=== PATIENT | male | born 1955 | race Caucasian/White ===

== ENCOUNTER 2020-09-01 18:14 | Outpatient (REF) | payer OTHER, SELFPAY ==
[2020-09-01 21:04] LABS: FREE T4 1.02 ng/dL (0.76-1.46); TSH 0.87 uIU/mL (0.36-3.74)
[2020-09-03 10:09] LABS: HIV-1/2 Ag & Ab Screen Negative (Negative)
[2020-09-03 10:31] LABS: Hepatitis C Ab w Rflx HCV PCR Negative (Negative)
== END 2020-09-01 18:15 | disposition home or self-care (01) ==
LOC: NCHCN 18:14
PROVIDERS: Visit Provider Nurse Practitioner Family
DX: Z11.4 Encounter for screening for human immunodeficiency virus [HIV]; Z11.59 Encounter for screening for other viral diseases; E05.90 Thyrotoxicosis, unspecified without thyrotoxic crisis or storm
CPT/HCPCS: 86803; 87389; 84439; 84443

== ENCOUNTER 2020-12-24 12:43 | Outpatient (REF) | payer OTHER, SELFPAY ==
[2020-12-24 17:31] LABS: ALT 90 U/L (16-63); AST 42 U/L (15-37); Alkaline Phosphatase 58 U/L (46-116); Anion Gap 8.2 mmol/L (3-11); BUN 18 mg/dL (7-18); Bilirubin, Total 0.7 mg/dL (0.2-1.0); CO2 26.8 mmol/L (21.0-32.0); CREATININE 0.9 mg/dL (0.70-1.30); Calcium 9.3 mg/dL (8.5-10.1); Chloride 104 mmol/L (98-107); Glucose 101 mg/dL (74-106); Potassium 4.7 mmol/L (3.5-5.1); Sodium 139 mmol/L (136-145); Total Protein 6.8 g/dL (6.4-8.2)
== END 2020-12-24 12:44 | disposition home or self-care (01) ==
LOC: NCHCN 12:43
PROVIDERS: Visit Provider Nurse Practitioner Family
DX: I10 Essential (primary) hypertension (principal)
CPT/HCPCS: 80053

== ENCOUNTER 2021-03-22 09:04 | Outpatient (REF) | payer OTHER, SELFPAY | END 2021-03-22 09:05 | disposition home or self-care (01) | LOC: NCHCN 09:04 | PROVIDERS: Visit Provider Nurse Practitioner Family | DX: N45.1 Epididymitis (principal) | CPT/HCPCS: 87086 ==

== ENCOUNTER 2021-04-19 17:39 | Outpatient (REF) | payer OTHER, SELFPAY ==
[2021-04-19 16:26] LABS: ALT 78 U/L (16-63); AST 36 U/L (15-37); Albumin 4.4 g/dL (3.4-5.0); Alkaline Phosphatase 61 U/L (46-116); Anion Gap 10.3 mmol/L (3-11); BUN 16 mg/dL (7-18); Bilirubin, Total 0.5 mg/dL (0.2-1.0); CO2 27.7 mmol/L (21.0-32.0); Calcium 9.6 mg/dL (8.5-10.1); Chloride 104 mmol/L (98-107); Glucose 108 mg/dL (74-106); Potassium 4.2 mmol/L (3.5-5.1); Sodium 142 mmol/L (136-145); Total Protein 7.4 g/dL (6.4-8.2)
[2021-04-19 16:39] LABS: TSH 1.29 uIU/mL (0.36-3.74)
[2021-04-20 10:08] LABS: Hep B Core Antibody Negative (Negative)
[2021-04-20 10:44] LABS: Hep A Total Ab w Rflx IgM Positive (Negative)
[2021-04-20 11:55] LABS: Hep A Antibody IgM Negative (Negative)
== END 2021-04-19 17:40 | disposition home or self-care (01) ==
LOC: NCHCN 17:39
PROVIDERS: Visit Provider Nurse Practitioner Family
DX: E05.90 Thyrotoxicosis, unspecified without thyrotoxic crisis or storm (principal); I10 Essential (primary) hypertension; Z11.59 Encounter for screening for other viral diseases
CPT/HCPCS: 80053; 86704; 86709; 84443

== ENCOUNTER 2021-10-21 11:08 | Outpatient (REF) | payer OTHER, SELFPAY ==
[2021-10-21 14:49] LABS: ALT 52 U/L (16-63); AST 36 U/L (15-37); Albumin 4.1 g/dL (3.4-5.0); Alkaline Phosphatase 45 U/L (46-116); Anion Gap 9.6 mmol/L (3-11); BUN 26 mg/dL (7-18); Bilirubin, Total 0.5 mg/dL (0.2-1.0); CO2 24.4 mmol/L (21.0-32.0); Calcium 9.4 mg/dL (8.5-10.1); Chloride 102 mmol/L (98-107); Glucose 104 mg/dL (74-106); Potassium 4.2 mmol/L (3.5-5.1); Sodium 136 mmol/L (136-145); TSH (W/Ref FT4) 0.76 uIU/mL (0.36-3.74)
[2021-10-21 15:01] LABS: Calculated LDL 49 mg/dL (<100); Cholesterol 159 mg/dL (<200); HDL Cholesterol 101 mg/dL (40-60); Triglyceride 45 mg/dL (<150)
== END 2021-10-21 11:09 | disposition home or self-care (01) ==
LOC: NCHCN 11:08
PROVIDERS: Visit Provider Nurse Practitioner Family
DX: E05.90 Thyrotoxicosis, unspecified without thyrotoxic crisis or storm (principal); R03.0 Elevated blood-pressure reading, without diagnosis of hypertension; R74.01 Elevation of levels of liver transaminase levels; I25.10 Atherosclerotic heart disease of native coronary artery without angina pectoris; Z86.39 Personal history of other endocrine, nutritional and metabolic disease
CPT/HCPCS: 80053; 80061; 84443

== ENCOUNTER 2022-11-14 10:17 | Outpatient (REF) | payer MEDICARE, SELFPAY ==
[2022-11-14 15:31] LABS: Abs Immature Grans 0.02 10^3/uL (0.0-0.06); Absolute Basophil Count 0.04 10^3/uL (0.0-0.2); Absolute Lymphocyte Count 1.28 10^3/uL (1.2-3.4); Absolute Monocyte Count 0.47 10^3/uL (0.1-0.8); Absolute Neutrophil Count 3.86 10^3/uL (1.2-6.7); Basophils % 0.7; Eosinophils % 1.7; HCT 37.4 % (40.0-50.0); HGB 12.6 g/dL (13.5-17.5); Immature Grans % 0.3; Lymphocytes % 22.2; MCHC 33.7 % (32.0-36.0); MCV 95 fL (80-95); MPV 10.4 fL (8.0-11.0); Monocytes % 8.1; Platelet Count 276 10^3/uL (130-400); RBC 3.94 10^6/uL (4.36-5.78); RDW 11.9 % (11.8-14.1); RDW-SD 40.9 fL; WBC 5.77 10^3/uL (4.4-10.8)
[2022-11-14 15:59] LABS: ALT 87 U/L (16-63); AST 76 U/L (15-37); Albumin 3.9 g/dL (3.4-5.0); Alkaline Phosphatase 61 U/L (46-116); Anion Gap 8.4 mmol/L (3-11); BUN 18 mg/dL (7-18); Bilirubin, Total 0.5 mg/dL (0.2-1.0); CO2 26.6 mmol/L (21.0-32.0); Calcium 9.2 mg/dL (8.5-10.1); Calculated LDL 41 mg/dL (<100); Chloride 105 mmol/L (98-107); Cholesterol 144 mg/dL (<200); Estimated GFR 83.52 (mL/min/1.73m2); Glucose 103 mg/dL (74-106); HDL Cholesterol 79 mg/dL (40-60); Potassium 4.4 mmol/L (3.5-5.1); Sodium 140 mmol/L (136-145); TSH (W/Ref FT4) 0.75 uIU/mL (0.36-3.74); Total Protein 6.9 g/dL (6.4-8.2); Triglyceride 122 mg/dL (<150)
[2022-11-15 09:20] LABS: PSA, Screening 0.3 ng/mL (<=4.5)
== END 2022-11-14 10:18 | disposition home or self-care (01) ==
LOC: NCHCN 10:17
PROVIDERS: PCP Nurse Practitioner Family; Visit Provider Nurse Practitioner Family
DX: E05.90 Thyrotoxicosis, unspecified without thyrotoxic crisis or storm (principal); R74.01 Elevation of levels of liver transaminase levels; R11.0 Nausea; I25.10 Atherosclerotic heart disease of native coronary artery without angina pectoris; Z12.5 Encounter for screening for malignant neoplasm of prostate
CPT/HCPCS: 80053; 80061; 84153; 84443; 85025

== ENCOUNTER 2023-02-09 10:05 | Outpatient (REF) | payer MEDICARE, SELFPAY ==
[2023-02-09 14:40] LABS: HCT 41.6 % (40.0-50.0); HGB 13.9 g/dL (13.5-17.5); MCHC 33.4 % (32.0-36.0); MCV 93 fL (80-95); MPV 10.6 fL (8.0-11.0); Platelet Count 304 10^3/uL (130-400); RBC 4.49 10^6/uL (4.36-5.78); RDW 11.9 % (11.8-14.1); WBC 5.74 10^3/uL (4.4-10.8)
[2023-02-09 15:16] LABS: ALT 39 U/L (16-63); AST 26 U/L (15-37); Alkaline Phosphatase 46 U/L (46-116); Anion Gap 8.5 mmol/L (3-11); BUN 21 mg/dL (7-18); Bilirubin, Total 0.5 mg/dL (0.2-1.0); CO2 24.5 mmol/L (21.0-32.0); Calcium 9.6 mg/dL (8.5-10.1); Chloride 106 mmol/L (98-107); Estimated GFR 83.52 (mL/min/1.73m2); Ferritin 16 ng/mL (26-388); Glucose 99 mg/dL (74-106); Magnesium 2.1 mg/dL (1.8-2.4); Potassium 4.3 mmol/L (3.5-5.1); Sodium 139 mmol/L (136-145); Total Protein 7.1 g/dL (6.4-8.2)
== END 2023-02-09 10:06 | disposition home or self-care (01) ==
LOC: NCHCN 10:05
PROVIDERS: PCP Nurse Practitioner Family; Visit Provider Nurse Practitioner Family
DX: D64.9 Anemia, unspecified (principal); K21.9 Gastro-esophageal reflux disease without esophagitis
CPT/HCPCS: 80053; 85027; 82728; 83735

== ENCOUNTER 2023-09-04 11:44 | Outpatient (REF) | payer MEDICARE, SELFPAY ==
[2023-09-04 14:49] LABS: HCT 42.8 % (40.0-50.0); HGB 14.2 g/dL (13.5-17.5); MCH 30.5 pg (27.0-33.0); MCHC 33.2 % (32.0-36.0); MCV 92 fL (80-95); MPV 10.3 fL (8.0-11.0); Platelet Count 309 10^3/uL (130-400); RBC 4.66 10^6/uL (4.36-5.78); RDW 13.2 % (11.8-14.1); RDW-SD 44.9 fL; WBC 6.44 10^3/uL (4.4-10.8)
[2023-09-04 14:59] LABS: ALT 36 U/L (16-63); AST 22 U/L (15-37); Albumin 4.3 g/dL (3.4-5.0); Alkaline Phosphatase 56 U/L (46-116); Anion Gap 7.6 mmol/L (3-11); BUN 19 mg/dL (7-18); Bilirubin, Total 0.6 mg/dL (0.2-1.0); CO2 27.4 mmol/L (21.0-32.0); CREATININE 1.1 mg/dL (0.70-1.30); Calcium 9.3 mg/dL (8.5-10.1); Chloride 103 mmol/L (98-107); Estimated GFR 74.04 (mL/min/1.73m2); FREE T4 0.94 ng/dL (0.76-1.46); Glucose 100 mg/dL (74-106); Potassium 4.7 mmol/L (3.5-5.1); Sodium 138 mmol/L (136-145); TSH 0.68 uIU/Ml (0.36-3.74); Total Protein 7.3 g/dL (6.4-8.2)
== END 2023-09-04 11:45 | disposition home or self-care (01) ==
LOC: NCHCN 11:44
PROVIDERS: PCP Nurse Practitioner Family; Visit Provider Nurse Practitioner Family
DX: Z86.39 Personal history of other endocrine, nutritional and metabolic disease (principal); I25.10 Atherosclerotic heart disease of native coronary artery without angina pectoris
CPT/HCPCS: 80053; 85027; 84439; 84443

== ENCOUNTER 2023-11-30 13:04 | Outpatient (REF) | payer MEDICARE, SELFPAY ==
[2023-11-30 18:06] LABS: Calculated LDL 54 mg/dL (<100); Cholesterol 169 mg/dL (<200); HDL Cholesterol 97 mg/dL (40-60); Triglyceride 91 mg/dL (<150)
== END 2023-11-30 13:05 | disposition home or self-care (01) ==
LOC: NCHCN 13:04
PROVIDERS: PCP Nurse Practitioner Family; Visit Provider Nurse Practitioner Family
DX: E78.00 Pure hypercholesterolemia, unspecified (principal)
CPT/HCPCS: 80061

== ENCOUNTER 2024-12-19 14:19 | Outpatient (REF) | payer MEDICARE, SELFPAY ==
[2024-12-19 14:59] LABS: HCT 42.8 % (40.0-50.0); HGB 14.7 g/dL (13.5-17.5); MCH 31.7 pg (27.0-33.0); MCHC 34.3 % (32.0-36.0); MCV 92 fL (80-95); MPV 10.5 fL (8.0-11.0); Platelet Count 255 10^3/uL (130-400); RBC 4.63 10^6/uL (4.36-5.78); RDW 11.6 % (11.8-14.1); RDW-SD 39.3 fL; WBC 5.27 10^3/uL (4.4-10.8)
[2024-12-19 15:20] LABS: ALT 73 U/L (16-63); AST 46 U/L (15-37); Albumin 4.3 g/dL (3.4-5.0); Alkaline Phosphatase 51 U/L (46-116); Anion Gap 10.4 mmol/L (3-11); BUN 18 mg/dL (7-18); Bilirubin, Total 0.7 mg/dL (0.2-1.0); CO2 24.6 mmol/L (21.0-32.0); Calcium 9.6 mg/dL (8.5-10.1); Calculated LDL 61 mg/dL (<100); Chloride 104 mmol/L (98-107); Cholesterol 164 mg/dL (<200); Estimated GFR 93.61 (mL/min/1.73m2); Glucose 112 mg/dL (74-106); HDL Cholesterol 93 mg/dL (>or=40); Potassium 4.1 mmol/L (3.5-5.1); Sodium 139 mmol/L (136-145); TSH 1.23 uIU/mL (0.36-3.74); Total Protein 7.2 g/dL (6.4-8.2); Triglyceride 51 mg/dL (<150)
[2024-12-19 15:26] LABS: Hemoglobin A1C 5.7 % (<5.7)
== END 2024-12-19 14:20 | disposition home or self-care (01) ==
LOC: NCHCN 14:19
PROVIDERS: PCP Nurse Practitioner Family; Visit Provider Nurse Practitioner Family
DX: Z13.1 Encounter for screening for diabetes mellitus (principal); Z86.39 Personal history of other endocrine, nutritional and metabolic disease
CPT/HCPCS: 80053; 80061; 84153; 85027; 83036; 84439; 84443

== ENCOUNTER 2024-12-27 12:21 | Outpatient (REF) | payer MEDICARE, SELFPAY ==
[2024-12-27 23:16] LABS: PSA, Screening 0.5 ng/mL (<=4.5)
== END 2024-12-27 12:22 | disposition home or self-care (01) ==
LOC: NCHCN 12:21
PROVIDERS: PCP Nurse Practitioner Family; Visit Provider Nurse Practitioner Family
DX: Z12.5 Encounter for screening for malignant neoplasm of prostate (principal)
CPT/HCPCS: 84153